=== PATIENT | male | born 1975 | race Caucasian/White ===

== ENCOUNTER 2020-11-01 04:48 | Observation (INO) ==
[2020-11-01] MEDS ORDERED: NITROGLYCERIN 2% OINTMENT 30GM TUBE EXT STA (05:20)
[2020-11-01] MEDS ORDERED: FAMOTIDINE 20MG/5ML IV PUSH IV STA (05:20)
[2020-11-01] MEDS ORDERED: ACETAMINOPHEN 1,000 MG/100 ML VIAL IV STA (05:20)
--- NOTE | 2020-11-01 05:27 | Emergency Department Note ---
History of Present Illness General Chief complaint: Chest Pain Stated complaint: CHEST PAIN, ABNORMAL EKG Time Seen by Provider: 11/01/20 05:05 Source: patient Mode of arrival: ambulatory Limitations: no limitations History of Present Illness Provider complaint: Chest pain Onset (ago): hour(s) Radiation: extremity Severity: moderate Pain Consistency: + constant Maximum Pain Intensity: 7 Current Pain Intensity: 7 Quality: + constant Exacerbated By: + movement Associated symptoms: + shortness of breath; no headaches, no nausea/vomiting and no syncope Treatments prior to arrival: none This is a 45-year-old male brought in [facility] who presents due to concern for chest pain. Patient states chest pain is central, tightness, radiates in the left upper extremity. States left upper extremity also feels numb and tingly. Denies any radiation into the back or neck. Denies accompanying nausea. States he was lightheaded and dizzy with walking and also felt short of breath. States those seem to improve with rest or sitting down. No change in the pain with exertion versus rest. No prior similar episodes. Patient most concerned about cardiac etiology as he has had several male members of his family who have had fatal cardiac events in their 40s. Patient has never had any prior cardiac evaluation. No recent history of increased GERD, reflux, or indigestion. No prior history of GERD. Patient does take medication for high cholesterol and prediabetes. Patient was not given any treatment prior to arrival. Pt seen during a time of high acuity and national emergency pandemic while we aring PPE. Home Medications Medication Instructions Recorded Confirmed Type atorvastatin [Lipitor] 20 mg PO HS 11/01/20 11/01/20 History cetirizine [Zyrtec] 10 mg PO QAM 11/01/20 11/01/20 History dicyclomine 20 mg PO BID 11/01/20 11/01/20 History doxepin 25 mg PO HS 11/01/20 11/01/20 History paroxetine HCl [Paxil] 30 mg PO HS 11/01/20 11/01/20 History metformin 500 mg PO BID #30 tab 11/02/20 11/01/20 Rx Allergies Allergy/AdvReac Type Severity Reaction Status Date / Time No Known Allergies Allergy Unverified 11/01/20 07:44 Past Med/Surg History Medical History Hyperlipidemia Social History Smoking Status: Current every day smoker Tobacco Type: Cigarettes Cigarettes Per Day: 20; Hx Alcohol Use: No Hx Substance Use: No Preferred Language: Luxembourger Electromyographic Technician Required: No Beliefs That Will Affect Care: None Current Living Situation: Other Current Living Situation Comment: MARITO Wilder Feels Safe at Home: Yes Assistive Devices: None Review of Systems See HPI for pertinent positives & negatives. and A total of 10 systems reviewed and were otherwise negative Physical Exam Vital Signs Vital Signs - 24 hr 11/01/20 05:01 11/01/20 05:02 11/01/20 05:44 Temperature 36.5 C Temperature Source Temporal Artery Scan Pulse Rate 80 80 76 Pulse Rate [Apical] Pulse Rate from SpO2 Sensor 79 77 Respiratory Rate 16 25 H 17 Respiratory Effort / Characteristics Non-Labored Respiratory Depth Normal Blood Pressure 158/107 H 158/107 H 138/91 Blood Pressure [Left Arm] Blood Pressure Mean 124 124 106 Blood Pressure Mean [Left Arm] Pulse Oximetry 96 95 97 Oxygen Delivery Method Room Air Room Air Room Air Sepsis Recent Fever Within 48 Hours No Sepsis New/Unexplained Change in Mental Status No Sepsis Action Taken by Nursing No Action Required 11/01/20 06:37 11/01/20 07:00 Temperature Temperature Source Pulse Rate 76 69 Pulse Rate [Apical] 70 Pulse Rate from SpO2 Sensor 75 71 Respiratory Rate 17 18 Respiratory Effort / Characteristics Respiratory Depth Blood Pressure 152/89 H 141/86 H Blood Pressure [Left Arm] 141/86 H Blood Pressure Mean 110 104 Blood Pressure Mean [Left Arm] 104 Pulse Oximetry 96 94 Oxygen Delivery Method Room Air Room Air Sepsis Recent Fever Within 48 Hours Sepsis New/Unexplained Change in Mental Status Sepsis Action Taken by Nursing GENERAL: alert, well appearing, well nourished, no distress, non-toxic, multiple tattoos, BMI>30 EYE EXAM: normal conjunctiva, PERRL and EOM's grossly intact OROPHARYNX: no exudate, no erythema, lips, buccal mucosa, and tongue normal and mucous membranes are moist NECK: supple, no nuchal rigidity, no adenopathy, non-tender LUNGS: Clear to auscultation. Normal chest wall mechanics, no w/r/r HEART: no murmurs, S1 normal and S2 normal, no reproducible chest wall pain with palpation ABDOMEN: abdomen soft, non-tender, normo-active bowel sounds, no masses, no rebound or guarding. BACK: Back is symmetrical on inspection and there is no deformity, no midline tenderness, no CVA tenderness. SKIN: no rashes and no bruising UPPER EXTREMITIES: upper extremities are grossly normal. FROM, nml pulses b/l. LOWER EXTREMITIES: No pitting edema. FROM, nml pulses b/l. NEURO EXAM: Normal sensorium, cranial nerves II-XII grossly intact, normal speech, no gross weakness of arms, no gross weakness of legs. Gross sensation intact. Course Course 710: Patient still having pain. Less severe but still present. 729: Discussed with Dr. Mcguire. Pt still having pressure, additional meds added. Dr. Mcguire requested removal of nitro in hopes of obtaining stress test today. Administered Medications Discontinued Medications Acetaminophen (Acetaminophen 325 Mg Tab) 650 mg PO Q4H PRN PRN Reason: Pain or Fever Stop: 12/01/20 10:53 Last Admin: 11/02/20 14:12 Dose: 650 mg Documented by: [id number] Admin: 11/02/20 10:05 Dose: 650 mg Documented by: [id number] Aspirin (Aspirin 325 Mg Ectab) 325 mg PO NOW [facility] Stop: 11/01/20 07:31 Last Admin: 11/01/20 07:47 Dose: Not Given Documented by: [id number] Aspirin (Aspirin Chew 324 Mg) Confirm Administered Dose 324 mg .ROUTE .STK-MED ONE Stop: 11/01/20 07:37 Last Admin: 11/01/20 07:43 Dose: 324 mg Documented by: [id number] Aspirin (Aspirin 325 Mg Ectab) 325 mg PO [facility] Stop: 12/02/20 08:59 Last Admin: 11/02/20 08:50 Dose: 325 mg Documented by: [id number] Atorvastatin Calcium (Atorvastatin 20 Mg Tab) 20 mg PO [facility] Stop: 12/01/20 20:59 Last Admin: 11/01/20 21:24 Dose: 20 mg Documented by: [id number] Cetirizine HCl (Cetirizine Hcl 10 Mg Tablet) [facility] Stop: 12/01/20 10:53 Last Admin: 11/02/20 08:50 Dose: 10 mg Documented by: [id number] Admin: 11/01/20 11:42 Dose: 10 mg Documented by: [id number] Dicyclomine HCl (Dicyclomine Hcl 20 Mg Tab) 20 mg PO BID [facility] Stop: 12/01/20 20:59 Last Admin: 11/02/20 08:51 Dose: 20 mg Documented by: [id number] Admin: 11/01/20 21:24 Dose: 20 mg Documented by: [id number] Doxepin HCl (Doxepin Hcl 25 Mg Capsule) 25 mg PO HS [facility] Stop: 12/01/20 20:59 Last Admin: 11/01/20 21:24 Dose: 25 mg Documented by: [id number] Famotidine (Famotidine 20mg/5ml Iv Push) 20 mg IV ONE STA Stop: 11/01/20 05:21 Last Admin: 11/01/20 06:33 Dose: 20 mg Documented by: [id number] Fentanyl Citrate (Fentanyl Citrate 100 Mcg/2 Ml Vial) 50 mcg IV NOW STA Stop: 11/01/20 07:26 Last Admin: 11/01/20 07:43 Dose: 50 mcg Documented by: [id number] Heparin Sodium (Porcine) (Heparin Sod 5,000 Unit/0.5 Ml Vial) 7,500 units SQ Q8 [facility] Stop: 12/01/20 13:59 Last Admin: 11/02/20 13:31 Dose: 7,500 units Documented by: [id number] Admin: 11/02/20 06:05 Dose: 7,500 units Documented by: [id number] Admin: 11/01/20 21:24 Dose: 7,500 units Documented by: [id number] Admin: 11/01/20 14:50 Dose: 7,500 units Documented by: [id number] Acetaminophen (Ofirmev) 1,000 mg in 100 mls @ 400 mls/hr IV NOW STA Stop: 11/01/20 05:34 Last Infusion: 11/01/20 06:56 Dose: 0 mls/hr Documented by: [id number] Admin: 11/01/20 06:33 Dose: 400 mls/hr Documented by: [id number] Insulin Aspart (Insulin Aspart 100 Units/Ml 3 Ml Pen) 0 units SC ACHS [facility] Stop: 12/01/20 11:29 Last Admin: 11/01/20 12:14 Dose: Not Given Documented by: [id number] Insulin Aspart (Insulin Aspart 100 Units/Ml 3 Ml Pen) 0 units SC Q6 [facility] Stop: 12/01/20 17:59 Last Admin: 11/01/20 17:27 Dose: Not Given Documented by: [id number] Insulin Aspart (Insulin Aspart 100 Units/Ml 3 Ml Pen) 0 units SC ACHS [facility] Stop: 12/01/20 20:59 Last Admin: 11/02/20 12:02 Dose: Not Given Documented by: [id number] Admin: 11/02/20 08:51 Dose: Not Given Documented by: [id number] Admin: 11/01/20 21:37 Dose: Not Given Documented by: [id number] Cosigned by: [id number] Ioversol (Optiray 320 125ml) 120 ml IV ONCE ONE Stop: 11/01/20 17:52 Last Admin: 11/01/20 17:51 Dose: 120 ml Documented by: [id number] Ioversol (Optiray 320 100ml) 94 ml IV ONCE ONE Stop: 11/02/20 12:59 Last Admin: 11/02/20 12:59 Dose: 94 ml Documented by: [id number] Nitroglycerin (Nitroglycerin 2% Ointment 30gm Tube) 1 inch EXT NOW STA Stop: 11/01/20 05:21 Last Admin: 11/01/20 06:34 Dose: 1 inch Documented by: [id number] Pantoprazole Sodium (Pantoprazole 40 Mg Tab) 40 mg PO DAILY [facility] Stop: 11/04/20 09:01 Last Admin: 11/01/20 11:42 Dose: 40 mg Documented by: [id number] Pantoprazole Sodium (Pantoprazole 40 Mg Tab) 40 mg PO BID [facility] Stop: 11/02/20 21:01 Last Admin: 11/02/20 08:50 Dose: 40 mg Documented by: [id number] Admin: 11/01/20 21:24 Dose: 40 mg Documented by: [id number] Paroxetine HCl (Paroxetine Hcl 10 Mg Tab) 30 mg PO HS [facility] Stop: 12/01/20 20:59 Last Admin: 11/01/20 21:24 Dose: 30 mg Documented by: [id number] Sodium Chloride (Sodium Chloride 0.65% Na Soln 45 Ml ([place])) Confirm Administered Dose 225 sprays .ROUTE .STK-MED ONE Stop: 11/01/20 21:33 Last Admin: 11/01/20 21:38 Dose: 2 sprays Documented by: [id number] Sucralfate (Sucralfate 1 Gm/10 Ml Udc) 1 gm PO QID [facility] Stop: 12/01/20 20:59 Last Admin: 11/02/20 13:31 Dose: 1 gm Documented by: [id number] Admin: 11/02/20 08:51 Dose: 1 gm Documented by: [id number] Admin: 11/01/20 21:23 Dose: 1 gm Documented by: [id number] Medical Decision Making Differential Diagnosis Differential diagnoses includes but is not limited to acute coronary syndrome, myocardial infarction, pericarditis, pulmonary embolus, aortic dissection, pn eumonia, pneumothorax, musculoskeletal, shingles, esophageal. Medical Records Attestation: I reviewed the patient's medical records. Home Medications Current Medication List: was personally reviewed by me Laboratory Data Attestation: I reviewed the patient's lab results. Result diagrams: 11/01/20 06:11 11/01/20 06:11 Lab Results 11/01/20 11/01/20 11/01/20 Range/Units 06:11 06:11 06:11 WBC 7.16 (4.8-10.8) K/uL RBC 4.62 L (4.7-6.1) M/uL Hgb 14.0 (14.0-18.0) g/dL Hct 41.1 L (42-52) % MCV 89.0 (80-100) fL MCH 30.3 (25-34) pg MCHC 34.1 (32-36) g/dL RDW Std Deviation 41.2 (36.4-46.3) fL RDW Coeff of Barry 12.8 (11.5-14.5) % Plt Count 221 (130-400) K/uL MPV 10.5 H (7.4-10.4) fL Immature Gran % (Auto) 0.1 % Neut % (Auto) 53.9 % Lymph % (Auto) 35.8 % Story % (Auto) 8.5 % Eos % (Auto) 1.4 % Baso % (Auto) 0.3 % Neut # (Auto) 3.86 (1.4-6.5) K/uL Lymph # (Auto) 2.56 (1.2-3.4) K/uL Story # (Auto) 0.61 H (0.11-0.59) K/uL Eos # (Auto) 0.10 (0-0.5) K/uL Baso # (Auto) 0.02 (0-0.2) K/uL Immature Gran # (Auto) 0.01 (0.00-0.02) K/uL Sodium 140 (136-145) mmol/L Potassium 4.1 (3.5-5.1) mmol/L Chloride 108 H (98-107) mmol/L Carbon Dioxide 27 (21-32) mmol/L Anion Gap 5.0 (3-11) BUN 8 (7-18) mg/dl Creatinine 0.81 (0.6-1.4) mg/dl Est Cr Clr Drug Dosing 148.7 ml/min Est GFR ( Amer) 124.4 ml/min Est GFR (Non-Af Amer) 107.3 ml/min BUN/Creatinine Ratio 10.0 (10-20) Glucose 108 H (70-99) mg/dl Estimat Average Glucose 128 mg/dl Hemoglobin A1c 6.1 H (4.5-5.6) % Calcium 8.6 (8.5-10.1) mg/dl Magnesium 2.1 (1.8-2.4) mg/dl Total Bilirubin 0.5 (0.2-1) mg/dl AST 16 (15-37) U/L ALT 22 (12-78) U/L Alkaline Phosphatase 81 (45-117) U/L Troponin I < 0.015 (0-0.045) ng/ml NT-Pro-B Natriuret Pep 34 (0-450) pg/ml Total Protein 7.2 (6.4-8.2) gm/dl Albumin 3.6 (3.4-5.0) gm/dl Globulin 3.6 (2.5-4.0) gm/dl Albumin/Globulin Ratio 1.0 (0.9-2) Lipase 87 (73-393) U/L Imaging Data Radiologist's Impression: Chest X-Ray 11/01/20 05:20 XR chest 1V portable CLINICAL HISTORY: chest pain COMPARISON STUDY: No previous studies for comparison. FINDINGS: Lung volumes are are at the lower limits of normal. Lungs are clear. There is no pneumothorax or pleural effusion. Cardiac size is normal. Mediastinal contours are normal. There is no evidence for pulmonary edema. IMPRESSION: No acute cardiopulmonary findings. ACT 112: Negative or not required by law. Electronically signed by: Mika Hawkins M.D. 11/01/2020 6:31 AM ECG Data Attestation: I personally reviewed and interpreted this ECG as follows: Indication: + chest pain Rate (beats per minute): 76 Rhythm: + normal sinus ECG Intervals/blocks: + Normal QRS and + Normal QT ECG [place]: + Normal ECG ST segments: + Normal ST segments Comparison ECG Date: from (August 2020 is supplied by the retirement) Change: no significant change MDM Narrative HEART score 4 This is a 45 yo male who presents with concern for chest pain and multiple risk factors including fam hx of early onset CAD. Discussed all results at bedside. Pt given several medications for pain without relief. We discussed risk factors as patient denies any prior cardiac evaluation. Case discussed with hospitalist for additional evaluation. I do not suspect dissection. PERC negative. No recent URi sx to suggest pericarditis/myocaridits/pericardial effusion. No evidence of PNA on cxr. An order was placed for continuous cardiac monitoring. The monitor shows a rate of _78__ with _normal sinus_ rhythm. Impression & Plan Chest pain Discharge Plan Visit Data Chief Complaint: Chest Pain Stated Complaint: CHEST PAIN, ABNORMAL EKG ED Provider: Rohini Wilson Discharge Problem: Chest pain Patient Disposition: Admitted As Inpatient Discharge Instructions Interventions: ED Discharge Assessment Last Done: 11/01/20 10:29 Discharge Problem: Chest pain Qualifiers: Chest pain type: unspecified Qualified Code(s): R07.9 - Chest pain, unspecified
[2020-11-01 06:23] LABS: Basophils # (auto) 0.02 K/uL (0-0.2); Basophils % (auto) 0.3 %; Eosinophils % (auto) 1.4 %; Hematocrit (blood only) 41.1 % (42-52); Immature Granulocytes # (auto) 0.01 K/uL (0.00-0.02); Immature Granulocytes % (auto) 0.1 %; Lymphocytes # (auto) 2.56 K/uL (1.2-3.4); Lymphocytes % (auto) 35.8 %; Mean Corpuscular Hemoglobin 30.3 pg (25-34); Mean Corpuscular Hgb Conc 34.1 g/dL (32-36); Mean Platelet Volume 10.5 fL (7.4-10.4); Monocytes # (auto) 0.61 K/uL (0.11-0.59); Monocytes % (auto) 8.5 %; Neutrophils # (auto) 3.86 K/uL (1.4-6.5); Neutrophils % (auto) 53.9 %; Platelet Count 221 K/uL (130-400); RDW Coefficient of Variation 12.8 % (11.5-14.5); RDW Standard Deviation 41.2 fL (36.4-46.3); Red Blood Count 4.62 M/uL (4.7-6.1); White Blood Count 7.16 K/uL (4.8-10.8)
--- NOTE | 2020-11-01 06:32 | XRay Report ---
XR chest 1V portable CLINICAL HISTORY: chest pain COMPARISON STUDY: No previous studies for comparison. FINDINGS: Lung volumes are are at the lower limits of normal. Lungs are clear. There is no pneumothor ax or pleural effusion. Cardiac size is normal. Mediastinal contours are normal. There is no evidence for pulmonary edema. IMPRESSION: No acute cardiopulmonary findings. ACT 112: Negative or not required by law. Electronically signed by: Mika Hawkins M.D. 11/01/2020 6:31 AM
[2020-11-01 06:40] LABS: Alanine Aminotransferase 22 U/L (12-78); Albumin Level 3.6 gm/dl (3.4-5.0); Aspartate Aminotransferase 16 U/L (15-37); Blood Urea Nitrogen 8 mg/dl (7-18); Calcium 8.6 mg/dl (8.5-10.1); Carbon Dioxide 27 mmol/L (21-32); Chloride 108 mmol/L (98-107); Creatinine Clr Calc Pharmacy 148.7 ml/min; Est GFR (African American) 124.4 ml/min; Est GFR (Non-African American) 107.3 ml/min; Glucose 108 mg/dl (70-99); Lipase 87 U/L (73-393); Magnesium 2.1 mg/dl (1.8-2.4); Potassium 4.1 mmol/L (3.5-5.1); Sodium 140 mmol/L (136-145)
[2020-11-01 06:45] LABS: Alkaline Phosphatase 81 U/L (45-117); Bilirubin,Total 0.5 mg/dl (0.2-1); Globulin 3.6 gm/dl (2.5-4.0); NT Pro B Type Natriuretic Pept 34 pg/ml (0-450); Total Protein 7.2 gm/dl (6.4-8.2); Troponin I < 0.015 ng/ml (0-0.045)
[2020-11-01] MEDS ORDERED: fentaNYL citrate 100 MCG/2 ML VIAL IV STA (07:25)
[2020-11-01] MEDS ORDERED: ASPIRIN 325 MG ECTAB PO STA (07:30)
[2020-11-01] MEDS ORDERED: ASPIRIN CHEW 324 MG ONE (07:36)
--- NOTE | 2020-11-01 07:41 | History & Physical Report ---
Date of Service November 01, 2020 Assessment & Plan (1) Chest pain: Chest pain concerning with family history and dyspnea associated with it. Additional troponin will be checked at 10 AM consideration for stress testing if negative. Initial EKG is unremarkable. Patient have a routine echocardiogram prior to to determine if regional wall motion abnormalities with depressed ejection fraction is present if so may reconsider stress testing in consider interventional study. Patient continues on aspirin and oxygen (2) Hyperlipidemia: Remains on atorvastatin (3) Pre-diabetes: Typical on Metformin this will be held in case in interventional cardiology procedure will be performed insulin sliding scale be utilized History of Present Illness Primary Care Provider: MARITO Wilder 45-year-old male [facility] who presents due to concern for chest pain. Patient states chest pain is central, tightness, radiates in the le ft upper extremity. States left upper extremity also feels numb and tingly. Denies any radiation into the back or neck. Denies accompanying nausea. States he was lightheaded and dizzy with walking and also felt short of breath. States those seem to improve with rest or sitting down. No change in the pain with exertion versus rest. No prior similar episodes. Patient most concerned about cardiac etiology as he has had several male members of his family who have had fatal cardiac events in their 40s. Patient has never had any prior cardiac evaluation. No recent history of increased GERD, reflux, or indigestion. No prior history of GERD. Patient does take medication for high cholesterol and prediabetes. Patient was not given any treatment prior to arrival. Allergies Allergy/AdvReac Type Severity Reaction Status Date / Time No Known Allergies Allergy Unverified 11/01/20 07:44 Home Medications Medication Instructions Recorded Confirmed Type atorvastatin [Lipitor] 20 mg PO HS 11/01/20 11/01/20 History cetirizine [Zyrtec] 10 mg PO QAM 11/01/20 11/01/20 History dicyclomine [Bentyl] 20 mg PO BID 11/01/20 11/01/20 History doxepin 25 mg PO HS 11/01/20 11/01/20 History metformin 500 mg PO BID 11/01/20 11/01/20 History paroxetine HCl [Paxil] 30 mg PO HS 11/01/20 11/01/20 History Past Med/Surg History Medical History Hyperlipidemia Social History Smoking Status: Former smoker Tobacco Type: Cigarettes Feels Safe at Home: Yes Review of Systems Review of Systems: The patient appeared well nourished and normally developed. Vital signs as documented. Head exam is normocephalic atraumatic Neck is without JVD, thyromegaly, or carotid bruits. Lungs are clear to auscultation, no focal loss of breath sounds Cardiac exam, Rhythm is regular.. No murmurs, rubs or gallops. Abdominal exam reveals normal bowel sounds, soft non tender, no masses Extremities are nonedematous and both pedal pulses are present Neurologic exam is alert and oriented, no focal loss of strength or sensation Skin is without bruises or rashes Psychologically is without concerns for anxiety or depression Physical Exam Physical Exam: The patient appeared well nourished and normally developed. Vital signs as documented. Head exam is normocephalic atraumatic Neck is without JVD, thyromegaly, or carotid bruits. Lungs are clear to auscultation, no focal loss of breath sounds Cardiac exam, Rhythm is regular.. No murmurs, rubs or gallops. Abdominal exam reveals normal bowel sounds, soft non tender, no masses Extremities are nonedematous and both pedal pulses are present Neurologic exam is alert and oriented, no focal loss of strength or sensation Skin is without bruises or rashes Psychologically is without concerns for anxiety or depression Results & Data Results & Data ([facility]) Vital Signs (Past 12 Hours) Vital Signs Temp Pulse Pulse Resp BP BP Pulse Ox 11/01/20 07:00 69 70 18 141/86 H 141/86 H 94 11/01/20 06:37 76 17 152/89 H 96 11/01/20 05:44 76 17 138/91 97 11/01/20 05:02 80 25 H 158/107 H 95 11/01/20 05:01 97.7 F 80 16 158/107 H 96 Code Status & VTE Plan VTE Prophylaxis Plan VTE Prophylaxis will be ordered: Yes PG Care Time/CCT Total # of Minutes Spent Total Time Spent with Patient: Total time spent is greater than 50% in coordination of care (as documented) at patient's floor/unit and/or counseling patient: Coding Diagnoses Chest pain R07.9 Chest pain type: unspecified Hyperlipidemia E78.5 Pre-diabetes R73.03 (1) Chest pain Chest pain type: unspecified Qualified Code(s): R07.9 - Chest pain, unspecified
[2020-11-01] MEDS ORDERED: CARBOHYDRATES FOR HYPOGLYCEMIA PO PRN (10:54)
[2020-11-01] MEDS ORDERED: GLUCAGON FOR INJ 1 MG VIAL SQ PRN (10:54)
[2020-11-01] MEDS ORDERED: ONDANSETRON INJ 2 MG/ML 2 ML VIAL IV PRN (10:54)
[2020-11-01] MEDS ORDERED: DEXTROSE 50% 50 ML SYRINGE IV PRN (10:54)
[2020-11-01] MEDS ORDERED: ALUMINUM/MAGNESIUM SUSP 30 ML UDC PO PRN (10:54)
[2020-11-01] MEDS ORDERED: GLUCOSE 40% GEL 15 GM TUBE PO PRN (10:54)
[2020-11-01] MEDS ORDERED: GLUCOSE 10 TABS/TUBE PO PRN (10:54)
[2020-11-01] MEDS ORDERED: PANTOprazole 40 MG TAB PO SCH (10:54)
[2020-11-01] MEDS ORDERED: INSULIN ASPART 100 UNITS/ML 3 ML PEN SC SCH ×2 (11:30→18:00)
[2020-11-01] MEDS: CETIRIZINE HCL 10 MG TABLET PO SCH (11:42)
[2020-11-01] MEDS: HEPARIN SOD 5,000 UNIT/0.5 ML VIAL SQ SCH ×2 (14:50→21:24)
--- NOTE | 2020-11-01 15:11 | XCELERA ---
[id number]
[2020-11-01] MEDS ORDERED: OPTIRAY 320 125ml IV ONE (17:51)
--- NOTE | 2020-11-01 18:14 | CT Scan Report ---
CHEST CTA for PULMONARY ARTERIES CT DOSE: 630.91 mGy.cm HISTORY: Shortness of breath. Atypical chest pain. TECHNIQUE: Multiaxial CT images of the chest were performed following the intravenous administration of contrast to evaluate the pulmonary arteries. Maximal intensity projection images were also obtaine d. A dose lowering technique was utilized adhering to the principles of ALARA. COMPARISON STUDY: None. FINDINGS: Normal caliber thoracic aorta with no evidence for dissection. No pleural or pericardial ef fusions. The heart is borderline enlarged. Significant respiratory motion artifact resulting in subop timal evaluation of the pulmonary arteries. Specifically, there is nondiagnostic evaluation of the ma jority of the segmental and subsegmental pulmonary arteries. Otherwise, no filling defects within the main pulmonary arteries, lobar pulmonary arteries, or visualized segmental pulmonary arteries to sug gest a pulmonary embolus. Limited views of the upper abdomen demonstrate normal liver, spleen, and le ft adrenal gland. There is a 1 cm right adrenal gland nodule consistent with a benign adenoma. Normal esophagus. The thyroid gland enhances normally. No mediastinal or hilar lymphadenopathy. No suspicio us lytic or blastic osseous lesions. No pneumothorax. The central airways are patent. Small periphera l focus of groundglass density within the right upper lobe posteriorly favors mild dependent change. Otherwise, no focal lung consolidations to suggest pneumonia. IMPRESSION: 1. Respiratory motion artifact results in suboptimal evaluation. No evidence for central pulmonary em bolus. 2. Borderline cardiomegaly. ACT 112: Negative or not required by law. Electronically signed by: Killian Vazquez M.D. 11/01/2020 6:13 PM
[2020-11-01] MEDS ORDERED: PARoxetine HCL 10 MG TAB PO SCH (21:00)
[2020-11-01] MEDS ORDERED: ATORVASTATIN 20 MG TAB PO SCH (21:00)
[2020-11-01] MEDS ORDERED: DOXEPIN HCL 25 MG CAPSULE PO SCH (21:00)
[2020-11-01] MEDS: SUCRALFATE 1 GM/10 ML UDC PO SCH (21:23)
[2020-11-01] MEDS: PANTOprazole 40 MG TAB PO SCH (21:24)
[2020-11-01] MEDS: DICYCLOMINE HCL 20 MG TAB PO SCH (21:24)
[2020-11-01] MEDS ORDERED: SODIUM CHLORIDE 0.65% NA SOLN 45 ML (OCEAN) ONE (21:32)
[2020-11-01] MEDS: INSULIN ASPART 100 UNITS/ML 3 ML PEN SC SCH (21:37)
[2020-11-02 03:54] VITALS: TEMP 97.7
[2020-11-02] MEDS: HEPARIN SOD 5,000 UNIT/0.5 ML VIAL SQ SCH ×2 (06:05→13:31)
[2020-11-02 08:22] LABS: Estimated Average Glucose 128 mg/dl; Hemoglobin A1C 6.1 % (4.5-5.6)
[2020-11-02] MEDS: CETIRIZINE HCL 10 MG TABLET PO SCH (08:50)
[2020-11-02] MEDS: PANTOprazole 40 MG TAB PO SCH (08:50)
[2020-11-02] MEDS: SUCRALFATE 1 GM/10 ML UDC PO SCH ×2 (08:51→13:31)
[2020-11-02] MEDS: INSULIN ASPART 100 UNITS/ML 3 ML PEN SC SCH ×2 (08:51→12:02)
[2020-11-02] MEDS: DICYCLOMINE HCL 20 MG TAB PO SCH (08:51)
[2020-11-02] MEDS ORDERED: ASPIRIN 325 MG ECTAB PO SCH (09:00)
[2020-11-02] MEDS: ACETAMINOPHEN 325 MG TAB PO PRN ×2 (10:05→14:12)
--- NOTE | 2020-11-02 11:22 | Electrocardiogram Report ---
Test Reason : Blood Pressure : / mmHG Vent. Rate : 076 BPM Atrial Rate : 076 BPM P-R Int : 182 ms QRS Dur : 090 ms QT Int : 394 ms P-R-T Axes : 019 029 050 degrees QTc Int : 443 ms Normal sinus rhythm Anterior infarct , age undetermined Abnormal ECG No previous ECGs available Confirmed by Chun Antonio ([id number]) on 11/02/2020 11:21:48 AM Referred By: Tina SCI Confirmed By:Chun Antonio
[2020-11-02 11:23] VITALS: BP 123/70; O2SAT 93
[2020-11-02] MEDS ORDERED: OPTIRAY 320 100ml IV ONE (12:58)
--- NOTE | 2020-11-02 13:14 | CT Scan Report ---
CT abd pelvis oral and IV con CLINICAL HISTORY: left upper abd pain, change in bowel habits COMPARISON STUDY: None. TECHNIQUE: The patient was scanned following administration of dilute oral contrast, and in a dynamic helical fashion during intravenous administration of 94 cc of Optiray 320 A dose lowering technique was utilized adhering to the principles of ALARA. CT DOSE: 1160.31 mGycm FINDINGS: Lower chest: There are minor basilar atelectatic changes. Liver: The contrast-enhanced liver is normal in size, contour, and attenuation. There is no intrahepa tic biliary ductal dilatation. The hepatic veins and portal veins are patent. Gallbladder: Unremarkable. Spleen: Borderline enlarged measuring 12.5 cm Pancreas: Unremarkable. Adrenal glands: Unremarkable. Kidneys: There is symmetric renal cortical enhancement. The kidneys are normal in size without hydron ephrosis. Bowel: There are no transition zones indicate bowel obstruction. There is no evidence of acute divert iculitis. There are no findings to indicate acute appendicitis. Peritoneum: There is no intraperitoneal free air or abdominal ascites. There is tiny fat-containing u mbilical hernia Vasculature: The abdominal aorta is normal in course and caliber. Adenopathy: None. Pelvic viscera: The bladder, and pelvic viscera are unremarkable. Skeletal structures: No destructive osseous lesions are seen. IMPRESSION: 1. No acute abdominal or pelvic findings 2. No evidence of bowel obstruction. No evidence of free air 3. No acute inflammatory changes 4. No pathologic adenopathy 5. Borderline splenomegaly ACT 112: Negative or not required by law. Electronically signed by: Doroteo Grijalva M.D. 11/02/2020 1:13 PM
[2020-11-02 15:09] VITALS: PULSE 70
--- NOTE | 2020-11-02 18:44 | Discharge Summary ---
Date of Service November 02, 2020 Principal Diagnosis atypical chest pain Discharge Exam The patient appeared well Vital signs as documented. Lungs are clear to auscultation and appear unlabored Cardiac exam, Rhythm is regular.. No murmurs, rubs or gallops. some lower left side reproducible tenderness, no skin changes to consider shingles Abdominal exam reveals normal bowel sounds, soft non tender, no masses Extremities are nonedematous and both pedal pulses are normal. Neurologic exam is alert and oriented, no focal loss of strength or sensation Skin is without bruises or rashes Psychologically is without concerns for anxiety or depression. Discharge Data Allergies Allergy/AdvReac Type Severity Reaction Status Date / Time No Known Allergies Allergy Unverified 11/01/20 07:44 Consultations 11/01/20 07:32 ED Decision to Admit Stat Ordered Studies 11/01/20 16:32 CT angio chest PE protocol Routine 11/02/20 10:28 CT abd pelvis oral and IV con Routine Hospital Course (1) Chest pain: Chest pain concerning with family history and dyspnea associated with it. Negative troponin, stress echo testing negative. EKG is unremarkable. CTA did rule out PE infection or fracture CT Abdomen and pelvis with and without contrast ruled out intra abdominal issues (2) Hyperlipidemia: Remains on atorvastatin (3) Pre-diabetes: Typical on Metformin this will be held post iv dye for 3 days to restart 11/05 Total Time Total Time Spent Total Time Spent (In Minutes): Discharge 30 including 2 dependent visits to the patient's room and in a call to the physician at the assisted Discharge Plan Discharge Items [facility] Reason For Visit: CHEST PAIN Discharge Diagnosis: atypical chest pain negative stress test negative Chest CTA for pe or infection or fracture negative abdomen pelvis CT Activity: Resume your previous activity Non-emergency contact: Primary Care Provider Call non-emergency contact if: you have a fever Follow-up/Referrals: Tina DEVI [Primary Care Provider] - Diet: Carb Consistent or DM2 Addtl Attending Provider Instructions: despite some persistent pain, all diagnostic modalities did not show concerns for a internal issue, this still maybe GI related and would recommend taking protonix twice a day( or ppi substitute0 for 6 weeks and carafate four times a day for additional 4 days do not restart the metformin until 11/05/20 Pending Studies at Discharge: No Skilled Items Patient informed of condition?: Yes DNR: No Discharge Level of Care: Other Communicable Disease: Yes Discharge Prognosis: Stable Lines: None Urinary Catheter: No Medications and DC Order Prescriptions: Continued paroxetine HCl [Paxil] 10 mg Tablet 30 mg PO HS RF: 0 atorvastatin [Lipitor] 20 mg Tablet 20 mg PO HS RF: 0 cetirizine [Zyrtec] 10 mg Tablet 10 mg PO QAM RF: 0 doxepin 25 mg Capsule 25 mg PO HS RF: 0 dicyclomine 20 mg Tablet 20 mg PO BID RF: 0 metformin 500 mg Tablet 500 mg PO BID Qty: 30 RF: 0 Krames/Other Patient Handouts: 5 Steps for Eating Healthier, A1C Admission Data Admit Date/Time: 11/01/20 07:35 Attending Provider: Dawit Mcguire Admit Provider: Dawit Mcguire Primary Care Provider: Tina DEVI Other Providers: Dawit Mcguire Other Interventions: Discharge Summary Assessment (RN) Last Done: 11/02/20 14:49 Coding Level of Care Code D/C Day Management >30 mins Diagnoses Chest pain R07.9 Chest pain type: unspecified Hyperlipidemia E78.5 Pre-diabetes R73.03
--- NOTE | 2020-11-03 12:48 | Electrocardiogram Report ---
Test Reason : Blood Pressure : / mmHG Vent. Rate : 069 BPM Atrial Rate : 069 BPM P-R Int : 198 ms QRS Dur : 090 ms QT Int : 416 ms P-R-T Axes : 020 061 037 degrees QTc Int : 445 ms Normal sinus rhythm Possible Anterior infarct (cited on or before 01-NOV-2020) Abnormal ECG When compared with ECG of 01-NOV-2020 05:07, (unconfirmed) No significant change was found Confirmed by Chun Antonio ([id number]) on 11/03/2020 12:48:10 PM Referred By: Tina SCI Confirmed By:Chun Antonio
--- NOTE | 2020-11-05 18:33 | History & Physical Report ---
Date of Service November 01, 2020 Assessment & Plan (1) Chest pain: (1) Chest pain: Chest pain concerning with family history and dyspnea associated with it. Additional troponin will be checked at 10 AM consideration for stress testing if negative. Initial EKG is unremarkable. Patient have a routine echocardiogram prior to to determine if regional wall motion abnormalities with depressed ejection fraction is present if so may reconsider stress testing in consider interventional study. Patient continues on aspirin and oxygen (2) Hyperlipidemia: Remains on atorvastatin (3) Pre-diabetes: Typical on Metformin this will be held post iv dye for 3 days to restart 11/05 Admission and Anticipated Discharge Date Admission Date: November 01, 2020 History of Present Illness Primary Care Provider: MARITO Wilder 45-year-old male brought in from the [place] [facility] who presents due to concern for chest pain. Patient states chest pain is central, tightness, radiates in the left upper extremity. States left upper extremity also feels numb and tingly. Denies any radiation into the back or neck. Denies accompanying nausea. States he was lightheaded and dizzy with walking and also felt short of breath. States those seem to improve with rest or sitting down. No change in the pain with exertion versus rest. No prior similar episodes. Patient most concerned about cardiac etiology as he has had several male members of his family who have had fatal cardiac events in their 40s. Patient has never had any prior cardiac evaluation. No recent history of increased GERD, reflux, or indigestion. No prior history of GERD. Patient does take medication for high cholesterol and prediabetes. Patient was not given any treatment prior to arrival. Allergies Allergy/AdvReac Type Severity Reaction Status Date / Time No Known Allergies Allergy Unverified 11/01/20 07:44 Home Medications Medication Instructions Recorded Confirmed Type atorvastatin [Lipitor] 20 mg PO HS 11/01/20 11/01/20 History cetirizine [Zyrtec] 10 mg PO QAM 11/01/20 11/01/20 History dicyclomine 20 mg PO BID 11/01/20 11/01/20 History doxepin 25 mg PO HS 11/01/20 11/01/20 History paroxetine HCl [Paxil] 30 mg PO HS 11/01/20 11/01/20 History metformin 500 mg PO BID #30 tab 11/02/20 11/01/20 Rx Past Med/Surg History Medical History Hyperlipidemia Social History Smoking Status: Current every day smoker Tobacco Type: Cigarettes Cigarettes Per Day: 20; Hx Alcohol Use: No Hx Substance Use: No Preferred Language: Japanese Table Games Floor Supervisor Required: No Beliefs That Will Affect Care: None Current Living Situation: Other Current Living Situation Comment: MARITO Wilder Feels Safe at Home: Yes Assistive Devices: None Review of Systems Review of Systems: The patient appeared well nourished and normally developed. Vital signs as documented. Head exam is normocephalic atraumatic Neck is without JVD, thyromegaly, or carotid bruits. Lungs are clear to auscultation, no focal loss of breath sounds Cardiac exam, Rhythm is regular.. No murmurs, rubs or gallops. Abdominal exam reveals normal bowel sounds, soft non tender, no masses Extremities are nonedematous and both pedal pulses are present Neurologic exam is alert and oriented, no focal loss of strength or sensation Skin is without bruises or rashes Psychologically is without concerns for anxiety or depression Physical Exam Physical Exam: The patient appeared well nourished and normally developed. Vital signs as documented. Head exam is normocephalic atraumatic Neck is without JVD, thyromegaly, or carotid bruits. Lungs are clear to auscultation, no focal loss of breath sounds Cardiac exam, Rhythm is regular.. No murmurs, rubs or gallops. Abdominal exam reveals normal bowel sounds, soft non tender, no masses Extremities are nonedematous and both pedal pulses are present Neurologic exam is alert and oriented, no focal loss of strength or sensation Skin is without bruises or rashes Psychologically is without concerns for anxiety or depression Results & Data Results & Data ([facility]) Diagnostic Findings Chest X-Ray 11/01/20 05:20 XR chest 1V portable CLINICAL HISTORY: chest pain COMPARISON STUDY: No previous studies for comparison. FINDINGS: Lung volumes are are at the lower limits of normal. Lungs are clear. There is no pneumothorax or pleural effusion. Cardiac size is normal. Mediastinal contours are normal. There is no evidence for pulmonary edema. IMPRESSION: No acute cardiopulmonary findings. ACT 112: Negative or not required by law. Electronically signed by: Mika Hawkins M.D. 11/01/2020 6:31 AM Chest CTA 11/01/20 16:32 CHEST CTA for PULMONARY ARTERIES CT DOSE: 630.91 mGy.cm HISTORY: Shortness of breath. Atypical chest pain. TECHNIQUE: Multiaxial CT images of the chest were performed following the intravenous administration of contrast to evaluate the pulmonary arteries. Maximal intensity projection images were also obtained. A dose lowering technique was utilized adhering to the principles of ALARA. COMPARISON STUDY: None. FINDINGS: Normal caliber thoracic aorta with no evidence for dissection. No pleural or pericardial effusions. The heart is borderline enlarged. Significant respiratory motion artifact resulting in suboptimal evaluation of the pulmonary arteries. Specifically, there is nondiagnostic evaluation of the majority of the segmental and subsegmental pulmonary arteries. Otherwise, no filling defects within the main pulmonary arteries, lobar pulmonary arteries, or visualized segmental pulmonary arteries to suggest a pulmonary embolus. Limited views of the upper abdomen demonstrate normal liver, spleen, and left adrenal gland. There is a 1 cm right adrenal gland nodule consistent with a benign adenoma. Normal esophagus. The thyroid gland enhances normally. No mediastinal or hilar lymphadenopathy. No suspicious lytic or blastic osseous lesions. No pneumothorax. The central airways are patent. Small peripheral focus of gr oundglass density within the right upper lobe posteriorly favors mild dependent change. Otherwise, no focal lung consolidations to suggest pneumonia. IMPRESSION: 1. Respiratory motion artifact results in suboptimal evaluation. No evidence for central pulmonary embolus. 2. Borderline cardiomegaly. ACT 112: Negative or not required by law. Electronically signed by: Killian Vazquez M.D. 11/01/2020 6:13 PM Abdomen/Pelvis CT 11/02/20 10:28 CT abd pelvis oral and IV con CLINICAL HISTORY: left upper abd pain, change in bowel habits COMPARISON STUDY: None. TECHNIQUE: The patient was scanned following administration of dilute oral contrast, and in a dynamic helical fashion during intravenous administration of 94 cc of Optiray 320 A dose lowering technique was utilized adhering to the principles of ALARA. CT DOSE: 1160.31 mGycm FINDINGS: Lower chest: There are minor basilar atelectatic changes. Liver: The contrast-enhanced liver is normal in size, contour, and attenuation. There is no intrahepatic biliary ductal dilatation. The hepatic veins and portal veins are patent. Gallbladder: Unremarkable. Spleen: Borderline enlarged measuring 12.5 cm Pancreas: Unremarkable. Adrenal glands: Unremarkable. Kidneys: There is symmetric renal cortical enhancement. The kidneys are normal in size without hydronephrosis. Bowel: There are no transition zones indicate bowel obstruction. There is no evidence of acute diverticulitis. There are no findings to indicate acute appendicitis. Peritoneum: There is no intraperitoneal free air or abdominal ascites. There is tiny fat-containing umbilical hernia Vasculature: The abdominal aorta is normal in course and caliber. Adenopathy: None. Pelvic viscera: The bladder, and pelvic viscera are unremarkable. Skeletal structures: No destructive osseous lesions are seen. IMPRESSION: 1. No acute abdominal or pelvic findings 2. No evidence of bowel obstruction. No evidence of free air 3. No acute inflammatory changes 4. No pathologic adenopathy 5. Borderline splenomegaly ACT 112: Negative or not required by law. Electronically signed by: Doroteo Grijalva M.D. 11/02/2020 1:13 PM Code Status & VTE Plan VTE Prophylaxis Plan VTE Prophylaxis will be ordered: Yes PG Care Time/CCT Total # of Minutes Spent Total Time Spent with Patient: Total time spent is greater than 50% in coordination of care (as documented) at patient's floor/unit and/or counseling patient: Coding Level of Care Code 36473 OBS Care - Level 3 Diagnoses Chest pain R07.9 Chest pain type: unspecified Hyperlipidemia E78.5 Pre-diabetes R73.03 (1) Chest pain Chest pain type: unspecified Qualified Code(s): R07.9 - Chest pain, unspecified
== END 2020-11-02 15:25 ==
LOC: 2S 04:48 → ED 04:48 → 2S 10:29